=== PATIENT | female | born 1975 | race Caucasian/White ===

== ENCOUNTER 2019-07-23 07:40 | Day surgery (SDC) | payer BC ==
[~2019-07-23 07:40] MED LIST: Bupivacaine 0.25% 10 ML SDV ONE; Lactated Ringers 1,000 ML IV SCH; Methylene Blue 50 MG/10 ML Ampule ONE
[2019-07-23] MEDS ORDERED: Octyl 2-Cyanoacrylate 1 Tube ONE (07:41)
[2019-07-23] MEDS ORDERED: Scopolamine 1.5 MG Transdermal Patch TRDERM PRN (08:37)
[2019-07-23] MEDS ORDERED: Scopolamine 1.5 MG Transdermal Patch ONE (08:39)
--- NOTE | 2019-07-23 08:39 | PCM.PREANE ---
Preanesthetic Assessment - Anesthesia/Transfusion/Family Hx Anesthesia History: Prior Anesthesia Reaction Type of Anesthesia Reaction: Excessive Nausea/Vomiting Family History of Anesthesia Reaction: No Transfusion History: No Prior Transfusion(s) - Review of Systems General: No Symptoms Pulmonary: No Symptoms Cardiovascular: No Symptoms Gastrointestinal: No Symptoms Neurological: No Symptoms Other: Reports: None - Physical Assessment NPO Status Date: 07/22/19 NPO Status Time: 22:00 Vital Signs: Last Vital Signs Temp 97.5 F 07/23/19 08:00 Pulse 70 07/23/19 08:00 Resp 16 07/23/19 08:00 BP 98/57 L 07/23/19 08:00 Pulse Ox 100 07/23/19 08:00 Height: 5 ft 6 in Weight: 69.4 kg ASA Class: 2 Mental Status: Alert & Oriented x3 Airway Class: Mallampati = 1 ROM/Head Extension: Full Lungs: Clear to Auscultation, Normal Respiratory Effort Cardiovascular: Regular Rate, Regular Rhythm - Lab Values: Laboratory Last Values WBC 6.92 K/uL (4.0-11.0) 07/23/19 08:01 RBC 4.46 M/uL (4.30-5.90) 07/23/19 08:01 Hgb 13.8 g/dL (12.0-16.0) 07/23/19 08:01 Hct 41.7 % (36.0-46.0) 07/23/19 08:01 MCV 93.5 fL (80.0-98.0) 07/23/19 08:01 MCH 30.9 pg (27.0-32.0) 07/23/19 08:01 MCHC 33.1 g/dL (31.0-37.0) 07/23/19 08:01 RDW Std Deviation 41.1 fl (28.0-62.0) 07/23/19 08:01 RDW Coeff of Román 12 % (11.0-15.0) 07/23/19 08:01 Plt Count 223 K/uL (150-400) 07/23/19 08:01 MPV 10.20 fL (7.40-12.00) 07/23/19 08:01 Nucleated RBC % 0.0 /100WBC 07/23/19 08:01 Nucleated RBCs # 0 K/uL 07/23/19 08:01 HCG, Qual NEGATIVE (NEG) 07/23/19 08:01 - Allergies Allergies/Adverse Reactions: Allergies Allergy/AdvReac Type Severity Reaction Status Date / Time No Known Allergies Allergy Verified 07/18/19 07:56 - Blood Blood Available: No - Anesthesia Plan Pre-Op Medication Ordered: None - Acknowledgements Anesthesia Type Planned: General Anesthesia Pt an Appropriate Candidate for the Planned Anesthesia: Yes Alternatives and Risks of Anesthesia Discussed w Pt/Guardian: Yes Pt/Guardian Understands and Agrees with Anesthesia Plan: Yes Additional Comments: PMH: ibs, remote hx of anemia -resolved, spironolactone for acne PLAN: get PreAnesthesia Questionnaire HEENT History: Reports: None Cardiovascular History: Reports: None Respiratory History: Reports: None Gastrointestinal History: Reports: None Genitourinary History: Reports: None ENTRY EXAMINER History: Reports: Musculoskeletal History: Reports: Fracture Other Musculoskeletal History: hx fx foot Neurological History: Reports: None Psychiatric History: Reports: None Endocrine/Metabolic History: Reports: Diabetes, Gestational Hematologic History: Reports: None Immunologic History: Reports: None Oncologic (Cancer) History: Reports: None Dermatologic History: Reports: Other (See Below) Other Dermatologic History: occasional outbreak of acne, angioedema approx 5 years ago due to a possible chemical reaction (possibly from a new shirt that was worn and not prewashed) - Past Surgical History Head Surgeries/Procedures: Reports: None HEENT Surgical History: Reports: Oral Surgery Cardiovascular Surgical History: Reports: None Respiratory Surgical History: Reports: None GI Surgical History: Reports: None Female Surgical History: Reports: Section, D&C, Other (See Below) Other Female Surgeries/Procedures: cervical cerclage x2 Endocrine Surgical History: Reports: None Neurological Surgical History: Reports: None Musculoskeletal Surgical History: Reports: None Oncologic Surgical History: Reports: None Dermatological Surgical History: Reports: None - SUBSTANCE USE Smoking Status *Q: Never Smoker - HOME MEDS Home Medications: Home Meds Fluticasone Furoate [Flonase Sensimist] 1 spray NASBOTH DAILY PRN 07/18/19 [ History] Loratadine [Claritin] 10 mg PO DAILY PRN 07/18/19 [History] Progesterone, Micronized [Progesterone] 200 mg PO DAILY 07/18/19 [History] Spironolactone [Aldactone] 1.5 tab PO DAILY 07/18/19 [History] Tazarotene [Tazorac] 1 applic TOP ASDIRECTED PRN 07/18/19 [History] Calcium Phosphate Trib/Vit D3 [Calcium + Vitamin D3 Gummies] 2 tab.chew CHEW DAILY 07/19/19 [History] - CURRENT (IN HOUSE) MEDS Current Meds: Current Medications Lactated Ringer's (Ringers, Lactated) 1,000 mls @ 125 mls/hr IV ASDIRECTED LEONOR Discontinued Medications Bupivacaine HCl (Sensorcaine-Mpf 0.25%) Confirm Administered Dose 20 ml .ROUTE .STK-MED ONE Stop: 07/23/19 07:40 Methylene Blue (Provayblue) Confirm Administered Dose 50 mg .ROUTE .STK-MED ONE Stop: 07/23/19 07:40 Octyl Cyanoacrylate (Dermabond Advance) Confirm Administered Dose 1 applic .ROUTE .STK-MED ONE Stop: 07/23/19 07:42
[2019-07-23] MEDS ORDERED: Midazolam 1 MG/ML 2 ML SDV ONE (10:44)
[2019-07-23] MEDS ORDERED: fentaNYL 100 MCG/2 ML SDV ONE ×2 (10:45→11:45)
[2019-07-23] MEDS ORDERED: Lidocaine 2% 5 ML SDV ONE (10:46)
[2019-07-23] MEDS ORDERED: Propofol 200 MG/20 ML SDV ONE (10:47)
[2019-07-23] MEDS ORDERED: Ondansetron 4 MG/2 ML SDV ONE (11:52)
[2019-07-23] MEDS ORDERED: Sugammadex Sodium 200 MG/2 ML VIAL ONE (11:54)
[2019-07-23] MEDS ORDERED: Ketorolac 30 MG/ML SDV ONE (11:54)
[2019-07-23] MEDS ORDERED: Dexamethasone 4 MG/ML 5 ML MDV ONE (12:02)
--- NOTE | 2019-07-23 12:46 | PCM.POSTAN ---
POST ANESTHESIA ASSESSMENT - MENTAL STATUS Mental Status: Alert, Oriented - VITAL SIGNS Vital Signs: Last Vital Signs Temp 97.7 F 07/23/19 12:25 Pulse 100 07/23/19 12:35 Resp 10 L 07/23/19 12:35 BP 118/69 07/23/19 12:35 Pulse Ox 100 07/23/19 12:35 - RESPIRATORY Respiratory Status: Respiratory Rate WNL, Airway Patent, O2 Saturation Stable - CARDIOVASCULAR CV Status: Pulse Rate WNL, Blood Pressure Stable - GASTROINTESTINAL GI Status: No Symptoms - POST OP HYDRATION Hydration Status: Adequate & Stable
--- NOTE | 2019-07-23 13:06 | PCM48HPAN ---
Post Anesthesia Note - EVALUATION WITHIN 48HRS OF ANESTHETIC Vital Signs in Normal Range: Yes Patient Participated in Evaluation: Yes Respiratory Function Stable: Yes Airway Patent: Yes Cardiovascular Function Stable: Yes Hydration Status Stable: Yes Pain Control Satisfactory: Yes Nausea and Vomiting Control Satisfactory: Yes Mental Status Recovered: Yes Vital Signs: Last Vital Signs Temp 97.7 F 07/23/19 12:25 Pulse 98 07/23/19 12:40 Resp 10 L 07/23/19 12:40 BP 118/69 07/23/19 12:35 Pulse Ox 99 07/23/19 12:40
--- NOTE | 2019-07-23 13:20 | PCM.OPNOTE ---
- General Post-Op/Procedure Note Date of Surgery/Procedure: 07/23/19 Operative Procedure(s): Operative laparoscopy with right cystectomy Findings: Uterus of 10 weeks size. New formed left ovarian cyst. Right paraovarian cyst. Pre Op Diagnosis: Pelvic pain Post-Op Diagnosis: Pelvic pain Anesthesia Technique: General ET Tube Primary Surgeon: Bety Benavides Secondary Surgeon: Charbel Messer Anesthesia Provider: Timothy Meade Hemmer Chainstitch: Fletcher De Oliveira Pathology: 1. Pelvic wall washings 2. Right paraovarian cyst Fluid Replacement, Intraop: 1,600 EBL in mLs: 10 Complications: None known Condition: Good Free Text/Narrative:: Intake & Output 07/22/19 07/23/19 07/23/19 22:59 06:59 14:59 Intake Total 1250 Balance 1250
--- NOTE | 2019-07-23 13:32 | OR ---
SURGEON: Bety Benavides M.D. DATE OF PROCEDURE: 07/23/2019 PREOPERATIVE DIAGNOSIS: Right pelvic cyst, persistent. POSTOPERATIVE DIAGNOSES: 1. Right pelvic cyst, persistent. 2. Paraovarian cyst. PROCEDURES: Operative laparoscopy, peritoneal washings with right paraovarian cystectomy. PRIMARY SURGEON: Bety Benavides M.D. UNLEAVENED DOUGH MIXER: DUC Waddell. ANESTHESIA: General endotracheal. FLUIDS: 1200 mL crystalloid. ESTIMATED BLOOD LOSS: Less than 10 mL. COMPLICATIONS: None known. PATHOLOGY SPECIMEN: Pelvic washings, cyst fluid, cyst wall. DISPOSITION: Stable to recovery. BRIEF HISTORY: This is a 43-year-old female. She presents with intermittent right pelvic pain. Ultrasound over the past 6 months has shown a persistent 5 cm right ovarian cyst. It has not decreased in size. It appears bilobulated and is either within or immediately adjacent to the right ovary. The left ovary contained a 3 cm cyst that was not present on the most recent ultrasound, but most consistent with a functional cyst. Due to the persistent 5 cm cyst on the right associated with pain, I did recommend proceeding with an operative laparoscopy, possible ovarian cystectomy, possible right salpingo-oophorectomy with surgical risks discussed including bleeding, infection, injury to bowel, bladder, blood vessels or other organs, risk of thromboembolic event, and risk of anesthesia. Understanding all these risks, she does desire to proceed. DESCRIPTION OF PROCEDURE: With the patient in dorsal lithotomy position, under adequate general endotracheal anesthesia, the abdomen was prepped with chlorhexidine. Perineum and vagina were prepped with Betadine and draped in the usual fashion for laparoscopic surgery. SCDs were in place. The bladder had been drained with a red Reeves catheter and an appropriate time-out was held. Bimanual examination was performed with findings of a retroverted 8-week size uterus. Speculum was placed in the vagina and the anterior cervix was grasped with an Allis clamp and the uterus was sounded to 8 cm and was retroverted. The cervix was dilated to accept the ZUMI uterine manipulator, which was placed to the uterine fundus and then gently rotated anteriorly to assist with elevation of the uterus. The balloon was filled. The speculum was removed. Car Wash Manager's gloves were changed. Attention was then turned to the umbilicus where 3 mL of 0.25% Marcaine were injected inferior to the umbilicus. A vertical 5 mm incision was made. The anterior abdominal wall was elevated. Veress needle was inserted. CO2 was insufflated. It was placed with opening pressure of 3 mmHg. CO2 was insufflated to develop an adequate pneumoperitoneum of 13 mmHg. The patient was placed in Trendelenburg position. Two additional ports were placed 2 cm superior and medial to the anterior superior iliac spine on the right and the left under direct visualization without any difficulty. At this point, the uterus was elevated. The pelvis was inspected with findings as noted above. Normal saline was used for pelvic washings and collected and sent to Pathology. At this point, the patient had a bradycardic episode down to 40. Therefore, the abdomen was desufflated. All of the instruments were removed and there was no stimulation of the pelvis. The correctional treatment specialist corrected the bradycardia and the abdomen was then insufflated approximately 3 minutes later with resuming the procedure. The cyst on the right was apparently within the right mesosalpinx immediately adjacent to the ovary. Therefore, I was able to open the mesosalpinx and shell the cyst wall. Once the cyst was free from the mesosalpinx, I drained the cyst removing approximately 50 mL of clear fluid, and the cyst was then removed via the 5 mm port. The pelvis was carefully inspected. Now using sterile water as a medium, there was no evidence of any bleeding from the base of the cyst removal site and therefore, the abdomen was desufflated and the ports were removed. The skin was closed with subcuticular suture of 4-0 Monocryl and the ZUMI uterine manipulator was removed. Final sponge, needle, and instrument counts were reported as correct. There were no known complications. The patient was transferred to recovery in good condition. DAVID PIERRE /[id number]
== END 2019-07-23 14:25 | disposition home or self-care (01) ==
LOC: MW.SDS 07:40
PROVIDERS: ATTEND Obstetrics & Gynecology
DX: D27.0 Benign neoplasm of right ovary (principal); Z79.890 Hormone replacement therapy; Z79.899 Other long term (current) drug therapy
CPT/HCPCS: 36415; 58662; 84703; 85027; A9270; J1100; J1885; J2001; J2250; J2405; J2704; J3010; J3490; J7120; 88104; 88305

== ENCOUNTER 2024-10-25 10:35 | Day surgery (SDC) | payer BC ==
[~2024-10-25 10:35] MED LIST changes: -Bupivacaine 0.25% 10 ML SDV ONE; -Lactated Ringers 1,000 ML IV SCH; -Methylene Blue 50 MG/10 ML Ampule ONE; +Sodium Chloride 0.9% 10 ML Syringe FLUSH PRN; +Sodium Chloride 0.9% 2.5 ML Syringe FLUSH PRN; +Sodium Chloride 0.9% 20 ML SDV IV PRN
[2024-10-25] MEDS: Lactated Ringers 1,000 ML IV SCH (11:31)
[2024-10-25] MEDS ORDERED: Lidocaine 2% 5 ML SDV ONE (12:41)
[2024-10-25] MEDS ORDERED: propofoL 500 MG/50 ML 50 ML ONE (12:41)
== END 2024-10-25 14:21 | disposition home or self-care (01) ==
LOC: MW.SDS 10:35
PROVIDERS: ATTEND Surgery
DX: D12.8 Benign neoplasm of rectum (principal)
CPT/HCPCS: 45380; 81025; J2704; J7120; 00811; J3490